=== PATIENT | female | born 1955 | race Caucasian/White ===

== ENCOUNTER → 2020-11-06 09:24 | Outpatient (CLI) | payer OTHER, SELFPAY ==
--- NOTE | ~2020-11-06 | CT_ITS ---
EXAMINATION: CT sinus wo con EXAM DATE: 11/06/2020 09:52 INDICATION: Chronic congestion of the paranasal sinuses. Acute sinusitis. TECHNIQUE: Spiral CT of the sinuses was acquired in the axial plane. Coronal and sagittal reformatte d images were also reviewed. The dose-length product (DLP) for this examination was 273.81 mGy-cm. Iterative reconstruction (ASIR) was used as dose reduction technique. There is no prior study for co mparison. FINDINGS: There appears be a large accessory left ethmoid air cell in the left frontal sinus, and a small one on the right. Mild bilateral ethmoid and right maxillary mucoperiosteal thickening. No sin us air-fluid levels. The ostiomeatal units are narrowed. There is no sinus wall thickening. There is large right-sided and moderate size left-sided teja bullosa. There is moderate leftward nasal septal deviation. The mastoid air cells and middle ears are well aerated. External auditory canals are patent. The orbits and visualized soft tissues are unremarkable. IMPRESSION: 1. Moderate leftward nasal septal deviation. 2. Mild ethmoid, right maxillary mucoperiosteal thickening. 3. Teja bullosa. Reviewed, dictated and finalized at location [facility]. N RESOURCES COMMUNICATIONS MANAGER
--- NOTE | ~2020-11-06 | MM_ITS ---
EXAMINATION: MM screening [facility] BI w jorge a HISTORY: Screening TECHNIQUE: Craniocaudal and mediolateral oblique 3-D tomosynthesis images were obtained and synthetic 2-D images were generated. CAD analysis was submitted and interpreted. COMPARISON: No prior mammogram is available for comparison at this institution. BREAST PARENCHYMAL COMPOSITION: The breasts are almost entirely fatty. FINDINGS: There is no evidence of suspicious mass, calcification, or architectural distortion to sugg est malignancy in either breast. There has been no suspicious interval change. IMPRESSION: 1. No mammographic evidence of malignancy. 2. Recommend routine screening mammography in one year. BI-RADS Category 1: Negative Reviewed, dictated and finalized at location [facility]. T CASHIER
== END ==
PROVIDERS: PCP Internal Medicine; Visit Provider Internal Medicine
DX: J01.90 Acute sinusitis, unspecified (principal); Z12.31 Encounter for screening mammogram for malignant neoplasm of breast; J34.2 Deviated nasal septum; J01.00 Acute maxillary sinusitis, unspecified; J34.89 Other specified disorders of nose and nasal sinuses
CPT/HCPCS: 70486; 77063; 77067

== ENCOUNTER → 2020-12-03 09:17 | Outpatient (CLI) | payer OTHER, SELFPAY ==
--- NOTE | ~2020-12-03 | CT_ITS ---
EXAMINATION: CT diagnostic chest wo con DATE: 12/03/2020 09:35 INDICATION: Pulmonary fibrosis TECHNIQUE: Computed tomography (CT) of the chest was performed without intravenous contrast. Automate d exposure control and iterative reconstruction technique were employed. Exam dose: 421.98 mGy-cm to shonna exam DLP. COMPARISON: 10/24/2019 CT chest high resolution scan FINDINGS: There is stable chronic extensive interstitial fibrotic changes predominating in the periph eral lung zones and right apical area, including peripheral bronchiectasis and/or honeycombing, stabl e since 10/24/2019. Calcified right upper lobe pulmonary granuloma and calcified right hilar nodes, consistent with old p ulmonary granulomatous disease. No hilar or mediastinal mass lesion or lymphadenopathy. No thoracic aortic aneurysm. Normal heart siz e. Coronary artery calcifications. Small sliding hiatal hernia. No suspicious osteolytic or osteoblastic lesions. IMPRESSION: No significant change of usual interstitial pneumonia since 10/24/2019 Reviewed, dictated and finalized at [facility]. Reviewed, dictated and finalized at location [facility]. SERVICE ADVISER IMPRESSION: No significant change of usual interstitial pneumonia since 020
== END ==
PROVIDERS: PCP Internal Medicine; Visit Provider Internal Medicine Pulmonary Disease
DX: J84.10 Pulmonary fibrosis, unspecified (principal)
CPT/HCPCS: 71250

== ENCOUNTER 2021-10-23 13:41 | Outpatient (CLI) | payer MEDICARE, SELFPAY ==
--- NOTE | ~2021-10-23 | CT_ITS ---
EXAMINATION: CT diagnostic chest wo con DATE: 10/23/2021 13:59 INDICATION: Interstitial pulmonary disease TECHNIQUE: Computed tomography (CT) of the chest was performed without intravenous contrast. The dose -length product (DLP) was 230.54 mGy-cm. Automated exposure control and iterative reconstruction tech Tutor Assignmentque were employed. COMPARISON: 12/03/2020 FINDINGS: There are coarse subpleural reticular and groundglass opacities, with a lower lung zone pre dominance, which have not significantly changed. Areas of honeycombing are also noted and not signifi cantly changed. There is no pleural effusion or pneumothorax. Calcified pulmonary nodules and calcifi ed right hilar lymph nodes are consistent with old granulomatous disease. The heart size is normal. T here is chronic mild mediastinal lymphadenopathy. Calcified coronary artery atherosclerosis is noted. The heart size is normal. IMPRESSION: 1. Stable chronic interstitial lung disease in a pattern of usual interstitial pneumonia (UIP). Reviewed, dictated and finalized at location F. WORKER
== END 2021-10-23 13:42 | disposition home or self-care (01) ==
LOC: ANHIMG 13:46
PROVIDERS: PCP Internal Medicine; Visit Provider Internal Medicine Pulmonary Disease
DX: J84.9 Interstitial pulmonary disease, unspecified (principal)
CPT/HCPCS: 71250